=== PATIENT | female | born 2000 | race Caucasian/White ===

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

== ENCOUNTER 2023-09-08 19:14 | Emergency (ER) | payer OTHER, MEDICAID, SELFPAY ==
[2023-09-08 19:21] VITALS: BP 113/75; PULSE 68; RESP 18; TEMP 36.6; O2SAT 98
--- NOTE | 2023-09-08 19:33 | ED.GENADULT ---
HPI - General Adult General Chief complaint: Dental/Oral Stated complaint: toothache History of Present Illness HPI narrative: 23YO WOMAN PRESENTS WITH SEVERE TOOTH PAIN TO HER RIGHT UPPER PREMOLAR THAT IS BROKEN. PAIN LONGSTANDING IN THIS TOOTH. WORSE LAST 2 DAYS. FACE SWELLED UP TODAY. Related Data Allergies Allergy/AdvReac Type Severity Reaction Status Date / Time No Known Allergies Allergy Verified 10/12/12 20:32 Review of Systems Review of Systems: All systems reviewed & are unremarkable except as noted in HPI and below Constitutional: Constitutional: Denies chills and Denies fever(s) ENT: Denies dysphagia Cardiovascular: Cardiovascular: Denies chest pain Respiratory: Respiratory: Denies dyspnea PMFSH Past Medical History Medical History Patient denies medical problems Social History Social History Smoking status: Never smoker Alcohol intake: never Substance use: never Living arrangements: with roommate(s) Exam Const: General: healthy appearing and no acute distress Nutritional Appearance: well nourished HENMT: Other: SEVERE DENTAL CARIES, NO BUCCAL OR GINGIVAL ABSCESS OR CELLULITIS Eyes: Conjunctivae: conjunctivae normal Resp: Effort & Inspection: normal respiratory effort Cardio: Rate: regular rate Skin: General skin exam: normal color, no jaundice and no pallor Course Vital Signs Vital signs: Vital Signs Temperature 36.6 C 09/08/23 19:21 Pulse Rate 68 09/08/23 19:21 Respiratory Rate 18 09/08/23 19:21 Blood Pressure 113/75 09/08/23 19:21 Pulse Oximetry 98 09/08/23 19:21 Oxygen Delivery Room Air 09/08/23 19:21 Temperature 36.6 C 09/08/23 19:21 Pulse Rate 68 09/08/23 19:21 Respiratory Rate 18 09/08/23 19:21 Blood Pressure 113/75 09/08/23 19:21 Pulse Oximetry 98 09/08/23 19:21 Oxygen Delivery Room Air 09/08/23 19:21 Medical Decision Making [facility] Narrative Medical decision making narrative: ODONTALGIA, FACIAL SWELLING DDX PERIAPICAL ABSCESS, GINGIVITIS, FACIAL LYMPHEDEMA, NO EVIDENCE OF CELLULITIS OR DRAINABLE ABSCESS Vital Signs Vital Signs: Vital Signs Temperature 36.6 C 09/08/23 19:21 Pulse Rate 68 09/08/23 19:21 Respiratory Rate 18 09/08/23 19:21 Blood Pressure 113/75 09/08/23 19:21 Pulse Oximetry 98 09/08/23 19:21 Oxygen Delivery Room Air 09/08/23 19:21 Temperature 36.6 C 09/08/23 19:21 Pulse Rate 68 09/08/23 19:21 Respiratory Rate 18 09/08/23 19:21 Blood Pressure 113/75 09/08/23 19:21 Pulse Oximetry 98 09/08/23 19:21 Oxygen Delivery Room Air 09/08/23 19:21 Discharge Plan Discharge Clinical Impression: Infected tooth, Periapical abscess, Facial edema Patient Disposition: Home, Self-Care Condition: Improved Instructions: Antibiotic Form Additional Instructions: TAKE THE PRESCRIBED ANTIBIOTICS AUGMENTIN FOR THE FULL 10 DAY COURSE AND THE STEROID DEXAMETHASONE FOR THE 3 DAY COURSE. FOR PAIN TAKE IBUPROFEN 600 MG EVERY 6 HOURS NEEDED, WITH FOOD. YOU CAN ALSO APPLY CLOVES, ICE, AND RINSE WITH SALT WATER TO REDUCE SWELLING AND PAIN. SLEEP UPRIGHT UNTIL YOUR FACIAL SWELLING IMPROVES. FOLLOW-UP WITH A DENTIST AT THE EARLIEST OPPORTUNITY Prescriptions: New amoxicillin 875 mg tablet 875 mg PO BID Qty: 20 0RF dexamethasone 4 mg tablet 4 mg PO BID Qty: 6 0RF Follow-up/Referrals: Ismael,DORENE Kelly [Primary Care Provider] - Stand Alone Forms: Work/School Release IP Time of Disposition: 19:40
[2023-09-08] MEDS: ACETAMINOPHEN 500 MG TABLET 1000 MG PO (19:41)
[2023-09-08] MEDS: KETOROLAC 10 MG TABLET 20 MG PO (19:41)
[2023-09-08] MEDS: AMOXICILLIN/CLAVULANATE K 875-125 MG TAB 1 TABLET PO (19:42)
[2023-09-08 19:58] VITALS: BP 101/73; PULSE 65; RESP 20; O2SAT 100
== END 2023-09-08 20:01 | disposition home or self-care (01) ==
PROVIDERS: Emergency Provider Emergency Medicine; PCP Physician Assistant
DX: K04.7 Periapical abscess without sinus (principal); R60.0 Localized edema
CPT/HCPCS: 99283; A9270; J1100

== ENCOUNTER 2024-10-07 19:55 | Emergency (ER) | payer OTHER, MEDICAID, SELFPAY ==
[2024-10-07 19:58] VITALS: BP 116/78; PULSE 71; RESP 15; TEMP 37; O2SAT 100
--- NOTE | 2024-10-07 20:16 | ED.DENTAL ---
HPI - Dental/Oral General Chief complaint: Dental/Oral Stated complaint: Lower Left Tooth Pain Time Seen by Provider: 10/07/24 19:58 Source: patient Mode of arrival: ambulatory Limitations: no limitations History of Present Illness HPI Narrative: this is a 24-year-old female with some dental pain does have an appointment with a dentist in February but is having left lower molar dental discomfort with surrounding gum inflammation with lower jaw swelling and tender submandibular gland with no fever chills no shortness of breath. MD Complaint: tooth pain Teeth map: 1. dental pain with surrounding gum inflammation Onset (ago): week(s) Duration: constant Severity: moderate Severity scale (1-10): 6 Related Data Allergies Allergy/AdvReac Type Severity Reaction Status Date / Time No Known Allergies Allergy Verified 10/12/12 20:32 Review of Systems Review of Systems: All systems reviewed & are unremarkable except as noted in HPI and below PMFSH Past Medical History Medical History Patient denies medical problems Social History Social History Smoking status: Never smoker Alcohol intake: never Substance use: never Living arrangements: with roommate(s) Exam Const: General: healthy appearing Nutritional Appearance: well nourished Orientation/consciousness: patient oriented x3 Limitations: no limitations Neck: Neck: normal visual inspection and lymphadenopathy Chest: Chest palpation & inspection: normal inspection of the chest Resp: Effort & Inspection: normal respiratory effort Auscultation: clear to auscultation bilaterally Cardio: Rate: regular rate Rhythm: regular rhythm GI: GI Palp: Yes Soft to palpation Course Course Emergency Course: Patient received a dose of amoxicillin and a p.o. dose of Toradol for pain, follow with dentist take medicine as prescribed. Vital Signs Vital signs: Vital Signs Temperature 37.0 C 10/07/24 19:58 Pulse Rate 71 10/07/24 19:58 Respiratory Rate 15 10/07/24 19:58 Blood Pressure 116/78 10/07/24 19:58 Pulse Oximetry 100 10/07/24 19:58 Oxygen Delivery Room Air 10/07/24 19:58 Temperature 37.0 C 10/07/24 19:58 Pulse Rate 71 10/07/24 19:58 Respiratory Rate 15 10/07/24 19:58 Blood Pressure 116/78 10/07/24 19:58 Pulse Oximetry 100 10/07/24 19:58 Oxygen Delivery Room Air 10/07/24 19:58 Critical Care Time Critical Care Time Critical Care Time: No Discharge Plan Discharge Clinical Impression: Dental abscess, Toothache Patient Disposition: Home, Self-Care Condition: Stable Instructions: Antibiotic Form, Dental Abscess (ED) Additional Instructions: Take medication as prescribed and follow with dentist for further evaluation and treatment. Prescriptions: New amoxicillin 500 mg capsule 500 mg PO TID Qty: 30 0RF naproxen 500 mg tablet 500 mg PO BID PRN (Reason: pain) Qty: 20 0RF Follow-up/Referrals: UNKNOWN,DOCTOR [Primary Care Provider] - Stand Alone Forms: Work/School Release IP Time of Disposition: 20:20
[2024-10-07] MEDS: AMOXICILLIN 500 MG CAPSULE PO (20:20)
[2024-10-07] MEDS: KETOROLAC 10 MG TABLET PO (20:20)
[2024-10-07 20:36] VITALS: BP 119/68; PULSE 85; RESP 18; O2SAT 97
== END 2024-10-07 20:36 | disposition home or self-care (01) ==
PROVIDERS: Emergency Provider Emergency Medicine
DX: K04.7 Periapical abscess without sinus (principal); K08.89 Other specified disorders of teeth and supporting structures
CPT/HCPCS: 99283; A9270